=== PATIENT | female | born 1945 | race Caucasian/White ===

== ENCOUNTER 2023-03-08 18:32 | Emergency (ER) | payer MEDICARE ==
[~2023-03-08] VITALS: Ht 160 cm; Wt 76.2 kg
[2023-03-08 18:51] VITALS: BP 158/57
[2023-03-08] MEDS ORDERED: BOOSTRIX IM ONE ×2 (18:53→19:00)
[2023-03-08] MEDS ORDERED: LIDOCAINE 1% VIAL ONE (19:39)
[2023-03-08 20:00] VITALS: BP 133/56
--- NOTE | 2023-03-08 20:00 | NUR ---
at bedside for laceration repair
--- NOTE | 2023-03-08 20:20 | NUR ---
Laceration repair completed, 6 sutures placed by MD patient tolerated without distress
[2023-03-08] MEDS ORDERED: TRIPLE ANTIBIOTIC OINTMENT TP ONE (20:23)
--- NOTE | 2023-03-08 20:24 | ER.PDOC ---
General Chief Complaint: Extremities Stated Complaint: LEFT LEG LAC Time seen by MD: 20:20 Source: patient Exam Limitations: no limitations History of Present Illness Initial Comments Laceration of left leg against a box. Onset: just prior to arrival Where: home Context: laceration Severity: moderate Past Medical History Medical History: coronary artery disease, cardiac problems, hypertension Surgical History: stent Family History Significant Family History: no pertinent family hx Social History Smoking: non-smoker Alcohol Use: none Drug Use: none Review of Systems Constitutional: no symptoms reported EENTM: no symptoms reported Respiratory: no symptoms reported Cardiovascular: no symptoms reported Gastrointestinal: no symptoms reported Skin: see HPI All Other Systems: Reviewed and Negative Physical Exam General Appearance: Alert, No Apparent Distress Foot: nml inspection, non-tender, nml color/temp, skin intact Ankle: nml inspection, non-tender, nml ROM, no joint swelling, skin intact Knee: nml inspection, non-tender, nml ROM, no joint swelling Thigh/Hip: nml inspection 1 - Lac Gait: normal Neuro/Vasc/Tendon: sensation nml, motor nml, no vascular compromise, tendon function nml Skin: warm/dry Head/ENT: nml inspection, pharynx nml Neck/Back: nml inspection, non-tender Abdomen: non-tender, pelvis stable ED LACERATION WOUND REPAIR # of Wounds/Lacerations Presen: 1 Wound Location & Length (Requi: Left leg Wound Length (cm): 4 Anesthesia type: local Anesthesia: 1% Lidocaine Volume Anesthetic (ccs): 10 Wound's Depth, Shape: irregular Irrigated w/ Saline (ccs): 50 Wound Repaired With: sutures Suture Size/Type: 4:0, ethilon Suture Style: interupted Number of Sutures: 6 Layer Closure?: No Sterile Dressing Applied?: Yes Results/Orders Results/Orders Orders - PETERSON VAIL MD Diph,Pertuss(Acell),Tet Vac/Pf (Boostrix (03/08/23 19:00) Lidocaine Hcl (Lidocaine 1% Vial) (03/08/23 19:39) Vital Signs Date Time Temp Pulse Resp B/P (MAP) Pulse Ox O2 Delivery O2 Flow Rate FiO2 03/08/23 20:00 55 16 133/56 (81) 96 Room Air* 0 21 03/08/23 18:51 97.9 64 16 93 03/08/23 18:51 97.9 64 16 158/57 (90) 93 Room Air* 0 21 Administered Medications Medications (Trade) Dose Ordered Sig/Inés Route PRN Reason Start Time Stop Time Status Last Admin Dose Admin Diphtheria/ Tetanus/Acell Pertussis (Boostrix) 0.5 ml ONCE ONCE IM 03/08/23 19:00 03/08/23 19:01 DC 03/08/23 18:59 0.5 ML Progress Progress Patient received a tetanus shot. ER DEPART Departure Time of Disposition: 20:23 Disposition: 01 HOME / SELF CARE / HOMELESS Impression: Primary Impression: Laceration of leg not thigh, left Condition: Improved Referrals: PCP,UNKNOWN (PCP) PRIMARY CARE PROVIDER Additional Instructions: Keflex Tylenol Apply Neosporin daily Remove sutures in 8 to 10 days at your PCP or ED Return to ED sooner if any concerns Duration or Time Spent with Pa: 10 min Problem Qualifiers Primary Impression: Laceration of leg not thigh, left Encounter type: initial encounter Qualified Codes: S81.812A - Laceration without foreign body, left lower leg, initial encounter PETERSON VAIL MD March 08, 2023 20:24
[2023-03-08 20:30] VITALS: BP 126/72
--- NOTE | 2023-03-08 20:35 | NUR ---
Neosporin and dressing applied per MD orders, patient tolerated without distress
== END 2023-03-08 20:37 | disposition home or self-care (01) ==
LOC: ER 18:32
DX: S81.812A Laceration without foreign body, left lower leg, initial encounter (principal); I10 Essential (primary) hypertension; I25.10 Atherosclerotic heart disease of native coronary artery without angina pectoris; X58.XXXA Exposure to other specified factors, initial encounter; Y93.89 Activity, other specified; Y92.89 Other specified places as the place of occurrence of the external cause; Y99.8 Other external cause status
CPT/HCPCS: 99284; 90471; 12002; 90715; J2001